=== PATIENT | male | born 1950 | race Caucasian/White ===

== ENCOUNTER → 2017-11-07 | Outpatient (CLI) | payer MEDICARE ==
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
== END | disposition home or self-care (01) ==
LOC: RADMRIMAIN 09:33
PROVIDERS: ATTEND Psychiatry & Neurology Neurology
DX: M99.71 Connective tissue and disc stenosis of intervertebral foramina of cervical region (principal); M47.12 Other spondylosis with myelopathy, cervical region; R26.89 Other abnormalities of gait and mobility
CPT/HCPCS: 72141

== ENCOUNTER → 2017-11-24 | Outpatient (CLI) | payer MEDICARE ==
--- NOTE | 2017-11-24 21:39 | MR ---
EXAMINATION TYPE: MR brain wo con DATE OF EXAM: 11/24/2017 COMPARISON: None HISTORY: Abnormal reflex, lt hemispheric dysfunction CONTRAST: Performed utilizing 0 mL intravenous Gadavist gadolinium contrast. TECHNIQUE: Multiplanar, multiecho imaging on a 3.0 Tereza magnet is performed through the brain. Stud y is performed within 24 hours of arrival to the hospital. The craniovertebral junction is normal. The pituitary is normal. Diffusion-weighted imaging is performed. No abnormal hyperintensity is present to suggest an acute i ntracranial infarct or acute ischemic change. There are scattered punctate areas of hyperintensity on T2 and Inversion Recovery weighted sequences which are non-specific but can be related to microvascular ischemic changes. Largest example images w ere included 7 mm lesion at the left centrum semiovale, series 501 image 23. And In the subcortical w brenden matter change in the right parietal lobe measuring 0.6 cm. Series 501 image 22. These do appear slightly greater in the trilobar region than elsewhere. Findings are nonspecific but can be related t o microvascular ischemic change among other etiologies. Ventricles and sulci are appropriate for the patient age. IMPRESSIONS: 1. Scattered periventricular white matter ischemic changes, likely chronic. No acute intracranial shawn nges are evident. Differential diagnosis could include vasculitis, gliosis from other etiologies such as migraine headaches and multiple sclerosis.
== END | disposition home or self-care (01) ==
LOC: RADMRIMAIN 19:48
PROVIDERS: ATTEND Psychiatry & Neurology Neurology
DX: R90.82 White matter disease, unspecified (principal); I63.9 Cerebral infarction, unspecified; G81.94 Hemiplegia, unspecified affecting left nondominant side; R90.89 Other abnormal findings on diagnostic imaging of central nervous system
CPT/HCPCS: 70551